=== PATIENT | male | born 1975 | race Caucasian/White ===

== ENCOUNTER 2021-09-16 16:44 | Emergency (ER) | payer MEDICAID ==
[~2021-09-16] VITALS: Ht 162.6 cm; Wt 72.6 kg
[2021-09-16 16:58] VITALS: BP 117/45
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
--- NOTE | 2021-09-16 17:40 | NUR ---
NURSE NANDINI CALLED BACK AND STATED THAT AT THIS POINT, THERE IS NOTHING THEY CAN DO, IF THE PATIENT WOULD LIKE TO MAKE A REPORT, HE WOULD NEED TO GO BACK AND MAKE THE REPORT HIMSELF, PT UPDATED.
[2021-09-16] MEDS ORDERED: IBUPROFEN 600 MG TAB PO ONE (18:00)
[2021-09-16] MEDS ORDERED: IBUP-2213 PO (18:51)
--- NOTE | 2021-09-16 19:00 | NUR ---
Patient discharged with v/s stable. Written and verbal after care instructions ABOUT TOE FRACTURE given and explained. Patient alert, oriented and verbalized understanding of instructions. Ambulatory with steady gait. All questions addressed prior to discharge. ID band removed. Patient advised to follow up with PMD. Rx of IBUPROFEN given. Patient educated on indication of medication including possible reaction and side effects. Opportunity to ask questions provided and answered.
== END 2021-09-16 19:00 | disposition home or self-care (01) ==
LOC: MED 16:44
DX: S92.422A Displaced fracture of distal phalanx of left great toe, initial encounter for closed fracture (principal); S90.122A Contusion of left lesser toe(s) without damage to nail, initial encounter; Z79.1 Long term (current) use of non-steroidal anti-inflammatories (NSAID); Y08.89XA Assault by other specified means, initial encounter; Y93.89 Activity, other specified; Y92.89 Other specified places as the place of occurrence of the external cause; Y99.8 Other external cause status
CPT/HCPCS: 73630; 99283